=== PATIENT | male | born 1985 | race Caucasian/White ===

== ENCOUNTER 2018-06-18 15:43 | Emergency (ER) | payer OTHER ==
[~2018-06-18] VITALS: Ht 165.1 cm; Wt 71.7 kg
[2018-06-18] MEDS ORDERED: LIDOCAINE 1% PF 2 ML VIAL. INJ ONE (16:30)
[2018-06-18] MEDS ORDERED: DIPHTH,PERTUSS(ACELL),TET TOX 0.5 ML DISP.SYRIN. VAX IM ONE (16:30)
[2018-06-18] MEDS ORDERED: IBUPROFEN 200 MG TABLET. PO ONE (16:30)
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
[2018-06-18 18:30] VITALS: BP 124/68
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
== END 2018-06-18 18:48 | disposition home or self-care (01) ==
LOC: ER 15:43 → EEVIPCON 15:43 → ER 18:48
DX: S00.81XA Abrasion of other part of head, initial encounter (principal); S50.811A Abrasion of right forearm, initial encounter; S20.311A Abrasion of right front wall of thorax, initial encounter; S20.419A Abrasion of unspecified back wall of thorax, initial encounter; Z88.0 Allergy status to penicillin; Y04.2XXA Assault by strike against or bumped into by another person, initial encounter; Y93.89 Activity, other specified; Y92.89 Other specified places as the place of occurrence of the external cause; Y99.8 Other external cause status
CPT/HCPCS: 12013; 70450; 70486; 71045; 72125; 72128; 73080; 73090; 90471; 90715; 99284-25